=== PATIENT | male | born 1950 | race American Indian/Alaskan Native ===

== ENCOUNTER 2018-05-28 08:42 | Day surgery (SDC) | payer MEDICARE ==
[2018-05-24 09:21] VITALS: BMI 28.8
[2018-05-28 09:51] VITALS: O2SAT 100
[2018-05-28] MEDS ORDERED: Bacitracin 50,000 UNIT in Sodium Chloride 0.9% Irrig 1,000 ML IR SCH (10:30)
[2018-05-28] MEDS ORDERED: Bupivacaine HCl 0.5% PF (10 ml) Inj ONE (10:41)
[2018-05-28] MEDS ORDERED: Bacitracin Ointment 30 GM TUBE ONE (10:41)
[2018-05-28] MEDS ORDERED: Lidocaine Hydrochloride 0 ML INJ ONE (10:41)
[2018-05-28] MEDS ORDERED: Gentamicin 160 MG in Sodium Chloride 0.9% 100 ML IVPB ONE (10:58)
[2018-05-28] MEDS ORDERED: Propofol 10 mg/ml Inj (20 ML) ONE (11:01)
[2018-05-28] MEDS ORDERED: Midazolam 2 MG/2 ML VIAL ONE (11:01)
[2018-05-28] MEDS ORDERED: Succinylcholine Chloride 20 mg/ml Syr (5 ml) IV ONE (11:02)
[2018-05-28] MEDS ORDERED: Lidocaine Hydrochloride 5 ML INJ ONE (11:02)
[2018-05-28] MEDS ORDERED: ceFAZolin 1 gm in NS 1 GM/100 ML BAG IVPB ONE (11:03)
--- NOTE | 2018-05-28 12:53 | PCM.SURG1 ---
Surgeon's Initial Post Op Note - Surgeon's Notes Surgeon: Savannah Auto Body Customizer: freda Type of Anesthesia: General LMA Anesthesia Administered By: staff Pre-Operative Diagnosis: IMPOTENCE REFRACTORY TO MED Rx Operative Findings: fibrotic corpra Post-Operative Diagnosis: same Operation Performed: Insertion semi rigid penile implant Specimen/Specimens Removed: na Estimated Blood Loss: EBL {In ML}: 10 Blood Products Given: N/A Drains Used: No Drains Post-Op Condition: Good Date of Surgery/Procedure: 05/28/18 Time of Surgery/Procedure: 12:52
[2018-05-28] MEDS: HYDROmorphone 0.5 mg/0.5 ml ISec IVP PRN ×2 (13:15→13:33)
[2018-05-28 14:29] VITALS: BP 150/73; PULSE 92; RESP 18; TEMP 97.4
--- NOTE | 2018-05-29 01:19 | OP ---
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 PROCEDURE: Insertion of semi-rigid penile implant. SURGEON: Broderick Nuñez MD HELP DESK CONSULTANT: None. DESCRIPTION OF PROCEDURE: Prior to the procedure, the patient signed a detailed informed consent. All the risks, complications and limitations of penile implant insertion were discussed with the patient. The different types of implants were reviewed and the patient elected to proceed with semi-rigid penile implant. He is aware that if the penile implant becomes infected, he may need surgical removal. He was brought into the room and a time-out was taken according to the rules and regulations of [facility]. The patient received prophylactic antibiotics. He was extensively prepped and draped in the usual manner. The penile implant retractor was used and placed on the penis after a Avila catheter was placed. Once the retractor was in good position, a median raphe incision was made at the penoscrotal junction. Avila catheter had been inserted and the incision was carried out to the subcutaneous tissues. Extreme care was taken to avoid injury to the urethra, none occurred. The retractor was then used to retract the skin, and blunt and sharp dissection was used to dissect the two corpora. Two stay sutures were placed in each corpus at the same level. The stay sutures were elevated and the incision in the corpora was made. This was widened using . Once this had been done, the corporal tissue which was fibrotic was dilated with sounds to the maximum possible diameter. Once this had been done on both sides, measurements were taken and the proper penile implant was then selected. The penile implant was inserted and it was checked for good fit, and there was an excellent fit with no SST deformity. Each corpus was closed with 3-0 Dexon suture in a discontinuous fashion. The subcutaneous tissue was closed with running 3-0 Dexon suture and the skin was closed with 3-0 Dexon suture. The patient tolerated this very well. The wound had been irrigated throughout the procedure with antibiotic solution and 0.5% Marcaine and Xylocaine solution was infiltrated around the incision for postoperative anesthesia, and a dry sterile dressing after bacitracin coating of the wound was placed. The patient tolerated this procedure well. The Avila catheter was removed and he was sent to the recovery room in good condition. Broderick Nuñez MD [facility] # [id number]
== END 2018-05-28 19:30 | disposition home or self-care (01) ==
LOC: C.SDS 08:42 → EDBD 08:42 → C.SDS 19:30
PROVIDERS: ATTEND Urology
DX: N52.9 Male erectile dysfunction, unspecified (principal)
CPT/HCPCS: 54405; 82948; J0690; J1170; J1580; J2250; J2704; J3010